=== PATIENT | female | born 1945 | race Caucasian/White ===

== ENCOUNTER 2020-01-09 19:44 | Emergency (ER) | payer MEDICARE ==
[~2020-01-09] VITALS: Ht 152.4 cm; Wt 77.0 kg
[~2020-01-09 19:44] MED LIST: ASPI-630 PO; CYCL-331 PO; DIAZ5TAB4 PO; HYDR-2765 PO; IBUP100O25 PO; LEVO137T3 PO; LORA10TA3 PO; MECL-75 PO; METH4TAB2 PO; METO50TA29 PO; NAPR-514 PO; SIMV20TA18 PO; TRAM50TA PO
--- NOTE | 2020-01-09 19:48 | PHYS DOC ---
General Adult HPI: HPI: ".. I ve been short of breath.. cough.. and now I got this fever... started 99.2, then 100.2.. I called Dr. Herman... they said come in...to ED.. I got this central chest pain.. it worse with the cough..." ".. I was exposed to COVID much earlier.. .. We had almost 100% of people there tested + for COVID...far as I know.. I ve never had it..." Patient is a 74 year old female who presents with above hx and complaints fever, chills, malaise, arthralgia, arthralgia, cough, and chest pain. Patient reported the chest pain started earlier tonight and has been constant since 1430 hrs. Pain is central chest. Exacerbated by cough. Patient works at the [employer] here in [place]. Patient normally follows now with Dr. Herman. Has followed with Dr. Kaiser in the past. Patient has been seen previously for hypertension, coronary artery disease, gallstones, elevated cholesterol, hypothyroidism, hayfever, sleep apnea C PAP dependent, meningioma,(Followed with MRI), Peripheral neuropathy, TIAs, macular degeneration, hepatic tendinosis, does have findings of old granulomas on her prior chest x-ray. Patient did get a flu vaccination this year. Patient has had prior deliveries of 2 girls 2 boys. Tubal ligation, lumbar laminectomy 4 and 5, hemorrhoidectomy, retinal tear, diverticulosis, , intraocular lens implants, meniscus repair, total knee repair, ruptured colon, hemocolectomy, and an colonoscopies. Review of Systems: Review of Systems: Constitutional: Complains of fever or chills Eyes: Denies change in visual acuity HENT: Complains of nasal congestion and mild sore throat Respiratory: Complains of cough and shortness of breath Cardiovascular: Complains of central chest pain GI: Denies abdominal pain, , vomiting, bloody stools or diarrhea . Complains of nausea : Denies dysuria Musculoskeletal: Complains of generalized arthralgia, myalgia Integument: Denies rash Neurologic: Denies headache, focal weakness or sensory changes Endocrine: Denies polyuria or polydipsia Lymphatic: Denies swollen glands Psychiatric: Denies depression or anxiety Family History: Family History: Father of metastatic prostate cancer at age 89, mother of ovarian cancer 88 and heart failure she 89. Brother of alcohol-related liver disease age 63 has a sister of diabetes and alcohol-related liver disease 79. Current Medications: Current Meds: See nursing for home medications Allergies: Allergies: Allergies Coded Allergies Type Severity Reaction Last Updated Verified morphine Allergy Unknown 08/04/14 Yes Physical Exam: PE: Constitutional: Moderate acute distress, non-toxic appearance. [] HENT: Normocephalic, atraumatic, bilateral external ears normal, oropharynx moist, no oral exudates, nose normal. Dentures Eyes: PERRLA, EOMI, conjunctiva normal, no discharge. Glasses Neck: Normal range of motion, no tenderness, supple, no stridor. [] Cardiovascular:Heart rate regular rhythm, no murmur, PMI slightly to the left Lungs & Thorax: Bilateral breath sounds equal apex with scattered wheezes on to auscultation . Breath sounds equal at apex. Has scattered wheezes. Abdomen: Bowel sounds normal, soft, no tenderness, no masses, no pulsatile masses. Old surgeries scars. Skin: Warm, dry, no erythema, no rash. [] Back: No tenderness, no CVA tenderness. Old surgery scars lumbar area. Extremities: No tenderness, no cyanosis, no clubbing, ROM intact, no edema. Old surgery scars knees. No cording appreciated Neurologic: Alert and oriented X 3, move extremities on request, has distal sen tho,, no focal deficits noted. [] Psychologic: Affect anxious, judgement normal, mood normal. [] EKG: EKG: My interpretation of EKG shows a sinus rhythm at 77 bpm. There is mild leftward axis. But no findings of acute STEMI of contralateral changes. [] Radiology/Procedures: Radiology/Procedures: [][address] [address] IMAGING REPORT Signed PATIENT: MERI BARRETT ACCOUNT: [id number] : 1945 LOCATION: ER AGE: 74 SEX: F EXAM STATUS: REG ER ORD. PHYSICIAN: GORDON ESCOBAR MD REASON: cp PROCEDURE: PORTABLE CHEST 1V Exam: Chest one view INDICATION: Chest pain TECHNIQUE: Frontal view of the chest Comparisons: None FINDINGS: The cardiomediastinal silhouette and pulmonary vessels are within normal limits. The lung and pleural spaces are clear. IMPRESSION: No acute cardiopulmonary process. Electronically signed by: Isreal Barnes MD (01/09/2020 8:34 PM) [facility] DICTATED AND SIGNED BY: ISREAL BARNES MD DATE: 01/09/202033 CC: GORDON ESCOBAR MD; MEE HERMAN ~MTH0 0 Heart Score: HEART Score for Chest Pain: HEART Score for Chest Pain Response (Comments) Value History Slighlty/Non-Suspicious 0 ECG Normal 0 Age > 65 2 Risk Factors 1 or 2 Risk Factors 1 Troponin >1-<3x Normal Limit 1 Total 4 Risk Factors: Risk Factors: DM, Current or recent (<one month) smoker, HTN, HLP, family history of CAD, obesity. Risk Scores: Score 0 - 3: 2.5% MACE over next 6 weeks - Discharge Home Score 4 - 6: 20.3% MACE over next 6 weeks - Admit for Clinical Observation Score 7 - 10: 72.7% MACE over next 6 weeks - Early Invasive Strategies Course & Med Decision Making: Course & Med Decision Making Pertinent Labs and Imaging studies reviewed. (See chart for details) Discussed presentation test and treatment plan with patient patient declines admission at this time. Patient recommended to self isolate for the next 10 days. After completing a 10-day period of self-isolation consider Covid testing at that time. Patient use MDI 2 puffs 4 times a day. Patient follow-up primary care. Patient follow-up pending pending cultures. Patient return if any concerns. Impression: 1. Chest Pain 2. History of fever 3. Viral Syndrome [] Dragon Disclaimer: Dragaline Disclaimer: This electronic medical record was generated, in whole or in part, using a voice recognition dictation system. Departure Departure: Referrals: MELINDA HOOPER MD (PCP) [place] Disclaimer This chart was dictated in whole or in part using Voice Recognition software in a busy, high-work load, and often noisy Emergency Department environment. It may contain unintended and wholly unrecognized errors or omissions. GORDON ESCOBAR MD Jan 09, 2020 19:48
[2020-01-09] MEDS ORDERED: IV RINGERS SOLUTION,LACTATED 1,000 ML IV SCH (20:00)
[2020-01-09] MEDS ORDERED: ASPIRIN CHEWABLE 81 MG TABLET. PO ONE (20:00)
--- NOTE | 2020-01-09 20:37 | RAD ---
Exam: Chest one view INDICATION: Chest pain TECHNIQUE: Frontal view of the chest Comparisons: None FINDINGS: The cardiomediastinal silhouette and pulmonary vessels are within normal limits. The lung and pleural spaces are clear. IMPRESSION: No acute cardiopulmonary process. Electronically signed by: Isreal Lorenz MD (01/09/2020 8:34 PM) NARESH
[2020-01-09 20:50] LABS: BASO % 0 % (0-3); EOS # 0.2 x10^3/uL (0.0-0.7); EOS % 2 % (0-3); HEMATOCRIT 41.9 % (36.0-47.0); HEMOGLOBIN 13.7 g/dL (12.0-15.5); LYMPH # 0.7 x10^3/uL (1.0-4.8); LYMPH % 9 % (24-48); MEAN CORPUSCULAR HEMOGLOBIN 29 pg (25-35); MEAN CORPUSCULAR HGB CONC 33 g/dL (31-37); MEAN CORPUSCULAR VOLUME 90 fL (79-100); MONO % 13 % (0-9); NEUT # 5.6 x10^3uL (1.8-7.7); NEUT % 75 % (31-73); PLATELET COUNT 209 x10^3/uL (140-400); RED BLOOD COUNT 4.65 x10^6/uL (3.50-5.40); RED CELL DISTRIBUTION WIDTH 14.3 % (11.5-14.5); WHITE BLOOD COUNT 7.5 x10^3/uL (4.0-11.0)
[2020-01-09 20:55] LABS: CALCIUM 8.8 mg/dL (8.5-10.1); CREATININE 0.8 mg/dL (0.6-1.0); GFR 69.7; POTASSIUM 3.9 mmol/L (3.5-5.1)
[2020-01-09 21:08] LABS: DIRECT BILIRUBIN 0.1 mg/dL (0.0-0.2); MAGNESIUM 1.9 mg/dL (1.8-2.4); TOTAL BILIRUBIN 0.3 mg/dL (0.2-1.0)
[2020-01-09] MEDS ORDERED: ALBUTEROL SULFATE 8GM INHALER. INH ONE (22:15)
--- NOTE | 2020-01-09 22:30 | EKG ---
[address] [address] Test Date: 2020-01-09 Test Time: 20:37:31 Pat Name: MERI BARRETT Department: Room: Gender: F [employer]: : 1945 Requested By: GORDON ESCOBAR Order Number: [id number] Reading MD: Measurements Intervals Robinson Rate: 77 P: 21 DE: 182 QRS: -4 QRSD: 86 T: 36 QT: 398 QTc: 452 Interpretive Statements SINUS RHYTHM LEFTWARD AXIS OTHERWISE NORMAL ECG RI6.02 No previous ECG available for comparison
[2020-01-09 22:37] LABS: INFLUENZA A PATIENT NEGATIVE (NEGATIVE); INFLUENZA B PATIENT NEGATIVE (NEGATIVE)
[2020-01-09 22:50] VITALS: BP 156/76
[2020-01-10 12:20] LABS: THYROID STIM HORMONE (TSH) 2.371 uIU/mL (0.358-3.740)
== END 2020-01-09 23:15 | disposition home or self-care (01) ==
LOC: ER 19:44
DX: B34.9 Viral infection, unspecified (principal); R07.89 Other chest pain; I10 Essential (primary) hypertension; I25.10 Atherosclerotic heart disease of native coronary artery without angina pectoris; E78.00 Pure hypercholesterolemia, unspecified; E03.9 Hypothyroidism, unspecified; Z86.73 Personal history of transient ischemic attack (TIA), and cerebral infarction without residual deficits; Z88.5 Allergy status to narcotic agent
CPT/HCPCS: 36415; 71045; 80048; 80061; 80076; 82550; 83605; 83690; 83735; 83880; 84443; 84484; 85025; 85379; 85610; 85730; 87040; 87070; 87804; 87880; 93005; 94640; 96360; 96361; 99285; J7120; J7613; 94664